=== PATIENT | male | born 1950 | race Caucasian/White ===

== ENCOUNTER 2017-02-04 18:53 | Emergency (ER) | payer MEDICAID, OTHER ==
[2017-02-04 19:00] VITALS: RESP 18
[2017-02-04] MEDS ORDERED: Sodium Chloride 0.9% 1,000 ML IV ONE (19:50)
[2017-02-04 20:06] LABS: BASO # 0.1 K/uL (0.0-0.2); BASO % 1.2 % (0.0-2.0); EOS # 0.6 K/uL (0.0-0.7); EOS % 4.9 % (0.0-4.0); HEMATOCRIT 39.3 % (35.0-51.0); LYMPH # 3.6 K/uL (1.0-4.3); LYMPH % 31.1 % (20.0-40.0); MEAN CELL VOLUME 96.1 fL (80.0-94.0); MEAN CORPUSCULAR HEMOGLOBIN 30.9 pg (27.0-31.0); MEAN CORPUSCULAR HGB CONC 32.1 g/dL (33.0-37.0); MEAN PLATELET VOLUME 8.7 fL (7.2-11.7); MONO # 1.1 K/uL (0.0-0.8); MONO % 9.8 % (0.0-10.0); RED CELL DISTRIBUTION WIDTH 13.1 % (11.5-14.5); WHITE BLOOD COUNT 11.6 K/uL (4.8-10.8)
--- NOTE | 2017-02-04 20:08 | C.PDOC ---
History Of Present Illness 66 year old male with a Hx of HTN and glaucoma presents to the ER with a complaint of numbness of the bilateral feet and hands intermittently for the past 2 weeks, associated with SOB on exertion. Patient reports he is complaint with his medications. Denies chest pain, nausea, vomiting, headache, diarrhea, dysuria, fever, or chills. Chief Complaint (Nursing): Upper Extremity Problem/Injury History Per: Patient History/Exam Limitations: no limitations Onset/Duration Of Symptoms: Days, Intermittent Episodes Current Symptoms Are (Timing): Still Present Recent travel outside of the [place]: No Past Medical History Reviewed: Historical Data, Nursing Documentation, Vital Signs Vital Signs: Last Vital Signs Temp 97.8 F 02/04/17 18:57 Pulse 110 H 02/04/17 18:57 Resp 18 02/04/17 18:57 BP 197/114 H 02/04/17 18:57 Pulse Ox 99 02/04/17 20:57 - Medical History PMH: Asthma, HTN, Hypercholesterolemia, Pneumonia - [facility] Procedures LEFT HEART CARDIAC CATH (06/30/14) LT HEART ANGIOCARDIOGRAM (06/30/14) Family History: States: Unknown Family Hx - Social History Hx Tobacco Use: No Hx Alcohol Use: No Hx Substance Use: No - Immunization History Hx Tetanus Toxoid Vaccination: No Hx Influenza Vaccination: No Hx Pneumococcal Vaccination: No Review Of Systems Constitutional: Negative for: Fever, Chills Cardiovascular: Negative for: Chest Pain, Palpitations Respiratory: Positive for: SOB with Excertion Gastrointestinal: Negative for: Nausea, Vomiting, Diarrhea Genitourinary: Positive for: Frequency. Negative for: Dysuria Neurological: Positive for: Numbness (Hands and feet). Negative for: Headache Physical Exam - Physical Exam Appears: Non-toxic, No Acute Distress Skin: Normal Color, Warm, Dry Head: Atraumatic, Normacephalic Eye(s): bilateral: Normal Inspection, PERRL, EOMI Oral Mucosa: Moist Neck: Normal, No Midline Cervical Tenderness, No Paracervical Tenderness, Supple Chest: Symmetrical, No Tenderness Cardiovascular: Rhythm Regular (S1 and S2 within normal limits), No Murmur Respiratory: Normal Breath Sounds, No Rales, No Rhonchi, No Wheezing Gastrointestinal/Abdominal: Soft, No Tenderness Extremity: Normal ROM (x4) Neurological/Psych: Oriented x3, Normal Speech, Normal Cranial Nerves, Normal Motor, Normal Sensation ED Course And Treatment - Laboratory Results Result Diagrams: 02/04/17 19:59 02/04/17 20:34 O2 Sat by Pulse Oximetry: 99 (Room air) Pulse Ox Interpretation: Normal Medical Decision Making Medical Decision Making: EKG, blood work, CXR, urinalysis, and flu swab ordered. IV fluids administered. Numbness seems to be in a sock and glove distribution. Differential: electrolyte deficiency vs peripheral neuropathy vs diabetic neuropathy Will review lab work, if everything is within normal limits patient will be discharged home with neuro follow up. Di dimer found to be 629, will due CT. Disposition - Disposition Referrals: Katalina Garcia [Outside] Disposition: HOME/ ROUTINE Disposition Time: 23:01 Condition: FAIR Forms: [employer] (Kinyarwanda) - Clinical Impression Clinical Impression: History of paresthesia, Neuropathy - Scribe Statement The provider has reviewed the documentation as recorded by the Scribe Uzair Borja All medical record entries made by the Scribe were at my direction and personally dictated by me. I have reviewed the chart and agree that the record accurately reflects my personal performance of the history, physical exam, medical decision making, and the department course for this patient. I have also personally directed, reviewed, and agree with the discharge instructions and disposition.
[2017-02-04 20:43] LABS: URINE BILIRUBIN NEGATIVE (NEGATIVE); URINE BLOOD NEGATIVE (NEGATIVE); URINE COLOR Straw (YELLOW); URINE GLUCOSE (UA) NORMAL (Normal); URINE KETONE NEGATIVE (NEGATIVE); URINE LEUKOCYTE ESTERASE NEG Leu/uL (Negative); URINE PROTEIN NEGATIVE (NEGATIVE); URINE UROBILINOGEN NORMAL mg/dL (0.2-1.0); WBC URINE < 1 /hpf (0-5)
[2017-02-04 21:09] LABS: ALB/GLOB RATIO 1.3 (1.0-2.1); ALKALINE PHOSPHATASE 54 U/L (38-126); ALT/SGPT 70 U/L (21-72); AST/SGOT 39 U/L (17-59); BILIRUBIN,TOTAL 1.1 mg/dL (0.2-1.3); BLOOD UREA NITROGEN 14 mg/dL (9-20); CALCIUM 8.2 mg/dl (8.6-10.4); CARBON DIOXIDE 31 mmol/L (22-30); CHLORIDE 101 mmol/L (98-107); GFR AFRICAN-AMERICAN > 60; GLUCOSE,RANDOM 110 mg/dL (75-110); POTASSIUM 3.5 mmol/L (3.6-5.2); SODIUM 139 mmol/L (132-148); TOTAL PROTEIN 6.9 g/dL (6.3-8.3)
[2017-02-04] MEDS ORDERED: Iodixanol 320 MG/ML 100 ML BOTTLE IV ONE (21:19)
[2017-02-04 23:15] VITALS: BP 187/93; PULSE 92; TEMP 98.3
[2017-02-05 02:03] VITALS: O2SAT 99
--- NOTE | 2017-02-05 09:02 | RAD ---
PROCEDURE: CHEST RADIOGRAPH, 1 VIEW HISTORY: SOB COMPARISON: Portable chest 06/30/2015. FINDINGS: LUNGS: No acute infiltrate bilaterally. Linear atelectasis or fibrosis in the right base. PLEURA: No pneumothorax or pleural fluid seen. CARDIOVASCULAR: Upper limits normal cardiac size stable. No pulmonary derangement. OSSEOUS STRUCTURES: No significant abnormalities. VISUALIZED UPPER ABDOMEN: Normal. OTHER FINDINGS: None. IMPRESSION: Improved aeration of the right base with no infiltrate identified this time. Linear atelectasis or fibrosis is seen instead. No left-sided airspace disease. Stable cardiovascular pattern.
--- NOTE | 2017-02-05 10:17 | CT ---
PROCEDURE: CT Chest with contrast (Pulmonary Angiogram) HISTORY: r/o PE COMPARISON: None available. TECHNIQUE: Axial computed tomography images were obtained of the chest in the pulmonary arterial phase of enhancement. Coronal and sagittal reformatted images were created and reviewed. Intravenous contrast dose: Visipaque 320, 100 cc. Radiation dose: Total exam DLP = 654.15 mGy-cm. This CT exam was performed using one or more of the following dose reduction techniques: Automated exposure control, adjustment of the mA and/or kV according to patient size, and/or use of iterative reconstruction technique. FINDINGS: PULMONARY ARTERIES: Unremarkable. No pulmonary embolism. AORTA: No acute findings. No thoracic aortic aneurysm. LUNGS: Trace fibrosis right apex laterally. No nodule, mass or pulmonary consolidation. PLEURAL SPACES: Unremarkable. No effusion or pneuomothorax. HEART: Unremarkable. No cardiomegaly. No significant pericardial effusion. LYMPH NODES: No lymphadenopathy. BONES, CHEST WALL: Unremarkable. No fracture or destructive lesion OTHER FINDINGS: Nonobstructing intrarenal calculus left kidney upper pole as well as bilateral renal cysts in left lobe hepatic cyst. Further, a 2.2 cm benign adrenal adenoma measures -4 Hounsfield units unchanged in size compared 12/14/[address] exam IMPRESSION: Unremarkable CT pulmonary angiogram. No pulmonary embolus. Incidental punctate intrarenal calculus left kidney as well as bilateral renal cysts and left lobe hepatic cyst. Adrenal benign adenoma again appreciated. Concordant preliminary report from [facility], 02/04/2017.
== END 2017-02-04 23:16 | disposition home or self-care (01) ==
LOC: C.ER 18:53
DX: R20.2 Paresthesia of skin (principal); G62.9 Polyneuropathy, unspecified; E78.00 Pure hypercholesterolemia, unspecified; I10 Essential (primary) hypertension
CPT/HCPCS: 71010; 71275; 80053; 81001; 82550; 84484; 85025; 85378; 87804; 96360; 99284; J7040; Q9967